=== PATIENT | female | born 1955 | race Caucasian/White ===

== ENCOUNTER → 2018-12-02 | Outpatient (CLI) | payer OTHER, SELFPAY ==
--- NOTE | 2018-12-02 14:24 | US_ITS ---
STUDY: ULTRASOUND OF THE FEMALE PELVIS - COMPLETE REASON FOR EXAM: Female, 63 years old. Bleeding TECHNIQUE: Transabdominal and transvaginal ultrasound images were obtained of the pelvis. TECHNICAL QUALITY: Adequate. COMPARISON: None. FINDINGS: The uterus measures 5.6 x 4.9 x 2.7 cm. Normal uterine cervix. The endometrium measures 3 mm in thickness. There is no demonstrated myometrial mass. The right ovary measures 2.5 x 1.7 x 0.9 cm. There is no right ovarian cyst or ovarian mass. There is no visualized right adnexal mass or complex lesion. There is normal arterial and normal venous vascularity. The left ovary measures 3.8 x 2.8 x 2.6 cm. There is a left ovarian 2.4 x 2.4 x 2.2 cm cyst. There is no visualized left adnexal mass or complex lesion. There is normal arterial and normal venous vascularity. There is mild fluid in the cul-de-sac. US/Pelvic (Non ) IMPRESSION: No acute pelvic pathology identified. Left ovarian cyst, physiologic in appearance. Mild free fluid, likely physiologic. Electronically Signed: Ayden Stewart, at 16:30 EDT Tel , Service support ,
--- NOTE | 2018-12-02 14:24 | US_ITS ---
STUDY: ULTRASOUND OF THE FEMALE PELVIS - COMPLETE REASON FOR EXAM: Female, 63 years old. Bleeding TECHNIQUE: Transabdominal and transvaginal ultrasound images were obtained of the pelvis. TECHNICAL QUALITY: Adequate. COMPARISON: None. FINDINGS: The uterus measures 5.6 x 4.9 x 2.7 cm. Normal uterine cervix. The endometrium measures 3 mm in thickness. There is no demonstrated myometrial mass. The right ovary measures 2.5 x 1.7 x 0.9 cm. There is no right ovarian cyst or ovarian mass. There is no visualized right adnexal mass or complex lesion. There is normal arterial and normal venous vascularity. The left ovary measures 3.8 x 2.8 x 2.6 cm. There is a left ovarian 2.4 x 2.4 x 2.2 cm cyst. There is no visualized left adnexal mass or complex lesion. There is normal arterial and normal venous vascularity. There is mild fluid in the cul-de-sac. US/Transvaginal Non- IMPRESSION: No acute pelvic pathology identified. Left ovarian cyst, physiologic in appearance. Mild free fluid, likely physiologic. Electronically Signed: Ayden Stewart, at 16:30 EDT Tel , Service support ,
== END | disposition home or self-care (01) ==
PROVIDERS: Family Provider Nurse Practitioner Primary Care; PCP Nurse Practitioner Primary Care; Referring Provider Urology; Visit Provider Urology
DX: N95.0 Postmenopausal bleeding (principal)
CPT/HCPCS: 76830; 76856